=== PATIENT | female | born 1965 ===

== ENCOUNTER → 2022-05-31 | Outpatient (REF) | payer MEDICAID, SELFPAY ==
[2022-05-31 15:39] LABS: Absolute Lymphocyte Count 2.59 X10^3/uL (0.83-4.51); Absolute Neutrophil Count 4.9 X10^3/uL (2.0-7.7); Basophil# 0.09 X10^3/uL; Basophil% 1.1 % (0-1); Eosinophil# 0.35 X10^3/uL; Eosinophils% 4.1 % (0-5); Hematocrit 43.5 % (37-47); Hemoglobin 14.1 g/dL (12.0-15.0); Lymphocyte # 2.59 X10^3/ul (0.83-4.51); Lymphocyte % 30.4 % (19-41); Mean Corp Hgb Conc 32.4 g/dL (32-36); Mean Corpuscular Hgb 29.1 pg (27.0-32.0); Mean Corpuscular Volume 89.7 fL (81-99); Mean Platelet Vol. 12.2 fl (6.2-12.0); Monocyte# 0.51 X10^3/uL; NRBC Flagged by Analyzer 0 % (0-5); Neutrophil # 4.94 X10^3/uL (2.7-7.7); Platelet Count 204 K/mm3 (150-450); RBC Distribution Width CV 12.6 % (11.6-14.6); RBC Distribution Width SD 41.1 fl (35.1-43.9); Red Blood Count 4.85 M/mm3 (4.2-5.4); White Blood Count 8.5 K/mm3 (4.4-11.0)
[2022-05-31 15:51] LABS: Erythrocyte Sedimentation Rate 24 mm/hr (0-30)
[2022-05-31 16:10] LABS: Hemoglobin A1c 9.1 % (3.8-5.6)
[2022-05-31 16:12] LABS: ALB/GLOB Ratio 1.4 RATIO (0.9-2.4); AST(SGOT) 36 U/L (15-37); Alanine Aminotransfer ALT/SGPT 76 U/L (13-56); Albumin, Serum 4.8 g/dL (3.2-5.0); Alkaline Phosphatase 110 U/L (45-117); Anion Gap 9 (5-15); BUN 10 mg/dL (7-18); BUN/Creat Ratio 10.3 RATIO (10-20); CRP 4.33 mg/L (0.0-3.0); Calcium,Total 10.3 mg/dL (8.5-10.1); Chloride 99 mmol/L (98-107); Cholesterol 208 mg/dL (200); Creatinine, Serum 0.97 mg/dL (0.55-1.02); EST Glomerular Filtration Rate 63 mL/min (>60); Est Glom Filt Rate - Afr Amer 76 mL/min (>60); Estradiol 24.9 pg/mL; Ferritin 42 ng/mL (8-252); Free T3 3.1 pg/mL (2.18-3.98); Globulin 3.5 g/dL (2.2-4.2); Glucose 255 mg/dL (74-106); High Density Lipoprotein 45 mg/dL; Iron 68 ug/dL (50-170); Potassium 4.1 mmol/L (3.5-5.1); Protein, Total 8.3 g/dL (6.4-8.2); Sodium Level 135 mmol/L (136-145); T4 Free Direct 1.22 ng/dL (0.76-1.46); Thyroid Stim Hormone (TSH) 0.73 uIU/mL (0.358-3.74); Triglycerides 149 mg/dL; Very Low Density Lipoprotein 30 mg/dL (5-40)
[2022-06-02 08:38] LABS: Progesterone Level < 0.21 ng/mL (See Comment)
[2022-06-08 09:07] LABS: Thyroid Peroxidase AB < 9 IU/mL (0-34)
[2022-06-08 20:27] LABS: T3 Reverse 21.9 ng/dL (9.2-24.1); Thyroglobulin Antibody < 1.0 IU/mL (0.0-0.9)
== END ==
LOC: LABSPEC 15:16
PROVIDERS: Visit Provider Nurse Practitioner Family
DX: R53.82 Chronic fatigue, unspecified (principal); R06.09 Other forms of dyspnea; R61 Generalized hyperhidrosis; E04.0 Nontoxic diffuse goiter; L65.9 Nonscarring hair loss, unspecified; I10 Essential (primary) hypertension; E28.39 Other primary ovarian failure; G47.00 Insomnia, unspecified; R32 Unspecified urinary incontinence; R06.02 Shortness of breath
CPT/HCPCS: 80053; 80061; 82627; 82670; 82728; 83036; 83540; 84144; 84403; 84439; 84443; 84481; 84482; 85025; 85652; 86140; 86376; 86800; 82626